=== PATIENT | female | born 1965 | race Caucasian/White ===

== ENCOUNTER 2020-12-28 07:25 | Emergency (ER) | payer OTHER ==
[~2020-12-28] VITALS: Ht 162.6 cm; Wt 88.0 kg
[2020-12-28] MEDS ORDERED: IBUPROFEN 600MG TABLET PO ONE (08:15)
[2020-12-28] MEDS ORDERED: HYDROCODONE/ACETAMINOPHEN 5/325MG TABLET PO ONE (08:15)
[2020-12-28 08:19] VITALS: BP 107/55
[2020-12-28] MEDS ORDERED: IBUP-2029 MT (09:23)
== END 2020-12-28 09:41 | disposition home or self-care (01) ==
LOC: ER 07:25 → EDBD 07:25 → ER 09:41
DX: S93.492A Sprain of other ligament of left ankle, initial encounter (principal); M79.672 Pain in left foot; X58.XXXA Exposure to other specified factors, initial encounter; Y93.89 Activity, other specified; Y92.89 Other specified places as the place of occurrence of the external cause; Y99.8 Other external cause status
CPT/HCPCS: 73610; 73620; 81025; 99284